=== PATIENT | male | born 1970 | race Hispanic/Latino ===

== ENCOUNTER 2024-11-10 07:18 | Emergency (ER) | payer BC ==
[~2024-11-10] VITALS: Ht 167.6 cm; Wt 87.1 kg
[2024-11-10] MEDS: ketOROlac 30MG VIAL (30MG/ML) IVP ONE (08:03)
[2024-11-10 08:14] LABS: CREATININE 0.9 mg/dL (0.5-1.3)
--- NOTE | 2024-11-10 08:31 | HMCIMG ---
Exam Type: US SCROTUM & CONTENTS Clinical Information: R/o Torsion Comparison: None Findings: Right testis is normal in size and echogenicity and vascularity. The left testis and the left epididymus are hypervascular consistent with acute epididymitis and orchitis. Complex hydrocele seen left side. No fluid collections right side. IMPRESSION: Acute left epididymoorchitis with complex hydrocele probably reactive.
[2024-11-10 08:33] LABS: BASOPHILS # (AUTO) 0.06 K/uL (0.00-0.20); BASOPHILS % (AUTO) 0.6 % (0.0-5.0); EOSINOPHILS # (AUTO) 0.12 K/uL (0.00-0.70); EOSINOPHILS % (AUTO) 1.1 % (0.0-8.0); HEMATOCRIT 42.1 % (42-54); IMMATURE GRANULOCYTE ABSOLUTE 0.11 K/uL (0-1); LYMPHOCYTES # (AUTO) 2.2 K/uL (1.0-4.8); LYMPHOCYTES % (AUTO) 20.6 % (21.0-51.0); MEAN CORPUSCULAR HEMOGLOBIN 32.7 pg (27.0-33.0); MEAN CORPUSCULAR HGB CONC 34.9 g/dL (32.0-36.0); MEAN CORPUSCULAR VOLUME 93.8 fL (79-99); MONOCYTES % (AUTO) 9.1 % (3.0-13.0); NEUTROPHILS # (AUTO) 7.3 K/uL (1.8-7.7); NEUTROPHILS % (AUTO) 67.6 % (40.0-77.0); PLATELET COUNT (AUTO) 298 K/uL (130-400); RED BLOOD CELL COUNT(AUTO) 4.49 MIL/uL (4.50-6.20); WHITE BLOOD COUNT (AUTO) 10.7 K/uL (4.8-10.8)
[2024-11-10 09:25] LABS: APPEARANCE,URINE CLEAR (CLEAR); BACTERIA,URINE RARE /HPF (None Seen); BILIRUBIN,URINE NEGATIVE (NEGATIVE); COLOR,URINE YELLOW (YELLOW); GLUCOSE, URINE (UA) NEGATIVE (NEGATIVE); KETONES,URINE NEGATIVE (NEGATIVE); LEUKOCYTE ESTERASE ,URINE NEGATIVE Leu/uL (NEGATIVE); MUCUS,URINE RARE LPF (None Seen); NITRATE,URINE NEGATIVE (NEGATIVE); PROTEIN,URINE 20 mg/dL (NEGATIVE); RBC,URINE 0-1 /HPF (0-1); SQUAMOUS EPITHELIAL CELL,UR RARE /HPF (0-2); UROBILINOGEN,URINE 0.2 mg/dL (0.2-1.0)
[2024-11-10] MEDS: cefTRIAXone 1G VIAL IM ONE (09:29)
[2024-11-10] MEDS: metRONIDazole 500 MG TABLET PO SCH (09:30)
[2024-11-10] MEDS: AZITHROMYCIN 250 MG TABLET PO ONE (09:30)
[2024-11-10] MEDS: PoTASSium chloRIDE 20MEQ ER 20 MEQ ERTAB PO ONE (09:31)
[2024-11-10] MEDS ORDERED: LIDOCAINE HCL 1% 20 ML VIAL ONE (09:34)
[2024-11-10 09:54] LABS: BAND NEUTROPHILS % (MANUAL) 3 % (0-2); BASOPHILS % (MANUAL) 1 % (0-2); LYMPHOCYTES % (MANUAL) 29 % (22-44); MAN.DIFF COMMENT-IMPRESSION MANUAL DIFFERENTIAL; MONOCYTES % (MANUAL) 9 % (2-9); PLATELET MORPHOLOGY COMMENT ADEQUATE; SEGMENTED NEUTROPHILS % 58 % (40-70); TOTAL CELLS COUNTED 100; WBC MORPHOLOGY CONSISTENT W/DIFF
[2024-11-10] MEDS ORDERED: CEPH500B PO (09:56)
--- NOTE | 2024-11-10 09:56 | ERN ---
General Chief Complaint: Testicular Injury/Pain Stated Complaint: LEFT TESTICLUAR PAIN Time Seen by MD: 07:20 History of Present Illness Initial Comments 54-year-old male came in for scrotal swelling with penile discharge which has been going on for the past few days. Patient has been having fever and denies chills. Patient denies nausea and vomiting. Patient otherwise has no concerns. Allergies: Coded Allergies: No Known Drug Allergies (Unverified Allergy, Unknown, 11/10/24) Past Medical History Past Medical History: Hypertension Past Surgical History: Other Surgical History Other: HERNIA REPAIR, RIGHT SHOULDER SX ROS Dictation CONSTITUTIONAL: Negative except for HPI HEAD/FACE: Negative except for HPI EENT: Negative except for HPI RESPIRATORY: Negative except for HPI GASTROINTESTINAL/ABDOMINAL: Negative except for HPI GENITOURINARY: Negative except for HPI MUSCULOSKELETAL: Negative except for HPI INTEGUMENTARY: Negative except for HPI NEUROLOGICAL/PSYCH: Negative except for HPI HEMATOLOGIC/LYMPHATIC: Negative except for HPI All Systems Negative, Except as noted above. 13 point review of systems assessed and all negative except for above. Physical Exam Physical Exam Dictation Vital Signs reviewed General Appearance: Alert, oriented x 3, no acute distress, well developed, nourished. Head and Face: non-traumatic. Eyes: PERRL, pink conjunctivas, eyelid no trauma, anterior chamber with arcus senilis. Ears: Pinnas intact and no signs of trauma or erythema ear canals clear and no discharge TM no erythema Nose: No discharge, no bleeding. Oropharynx: Mouth normal, tongue pink, pharynx clear,no erythema, tonsils no exudates, no abscesses noted, mucous membrane moist Neck: Supple, non-tender, no thyromegaly, no masses, no JVD, no bruits Breast:Deferred Chest:No tenderness, no crepitus, no paradoxical movement, no retractions Lungs:Clear, well-ventilated, symmetric, no rales, no wheezing, no rhonchi, no stridor, good breath sounds bilaterally Heart: Regular rate, regular rhythm, no murmur, no gallops Vascular: no peripheral edema, Abdomen: Soft, positive bowel sounds, nondistended, no guarding, nontender, no rebound, no masses no hepatomegaly, no splenomegaly, no Acharya's sign, no hernias. Rectal: Deferred Genital: Deferred Neurological: Normal speech, motor function intact, sensory function intact Musculoskeletal: Neck nontender, full range of motion, back nontender, full range of motion, Extremities: nontender, full range of motion Skin: Color pink, dry, no turgor, no rash, no lacerations, no abrasions, no contusions. Lymphatic: Deferred Results Laboratory and Microbiology Lab and Micro Result Laboratory Tests Test 11/10/24 07:55 11/10/24 08:40 White Blood Count 10.7 K/uL (4.8-10.8) Red Blood Count 4.49 MIL/uL (4.50-6.20) L Hemoglobin 14.7 g/dL (14.0-18.0) Hematocrit 42.1 % (42-54) Mean Corpuscular Volume 93.8 fL (79-99) Mean Corpuscular Hemoglobin 32.7 pg (27.0-33.0) Mean Corpuscular Hemoglobin Concent 34.9 g/dL (32.0-36.0) Red Cell Distribution Width 13.0 % (11.0-15.5) Platelet Count 298 K/uL (130-400) Mean Platelet Volume 10.8 fL (7.5-10.5) H Immature Granulocyte % (Auto) 1.0 % (0-1) Neutrophils (%) (Auto) 67.6 % (40.0-77.0) Lymphocytes (%) (Auto) 20.6 % (21.0-51.0) L Monocytes (%) (Auto) 9.1 % (3.0-13.0) Eosinophils (%) (Auto) 1.1 % (0.0-8.0) Basophils (%) (Auto) 0.6 % (0.0-5.0) Neutrophils # (Auto) 7.3 K/uL (1.8-7.7) Lymphocytes # (Auto) 2.2 K/uL (1.0-4.8) Monocytes # (Auto) 1.0 K/uL (0.1-1.0) Eosinophils # (Auto) 0.12 K/uL (0.00-0.70) Basophils # (Auto) 0.06 K/uL (0.00-0.20) Absolute Immature Granulocyte (auto 0.11 K/uL (0-1) Nucleated Red Blood Cells 0.0 % (0.0-0.19) Sodium Level 136 mmol/L (136-145) Potassium Level 3.0 mmol/L (3.5-5.1) *L Chloride Level 99 mmol/L (101-111) L Carbon Dioxide Level 30 mmol/L (21-32) Blood Urea Nitrogen 12 mg/dL (7-18) Creatinine 0.9 mg/dL (0.5-1.3) Glomerular Filtration Rate Calc 101 mL/min (>90) Random Glucose 109 mg/dL (70-105) H Total Calcium 8.5 mg/dL (8.5-10.1) Urine Color YELLOW (YELLOW) Urine Appearance CLEAR (CLEAR) Urine pH 6.0 (5.0-8.0) Urine Specific [place] 1.018 (1.001-1.031) Urine Protein 20 mg/dL (NEGATIVE) H Urine Glucose (UA) NEGATIVE mg/dL (NEGATIVE) Urine Ketones NEGATIVE mg/dL (NEGATIVE) Urine Occult Blood +- (TRACE) (NEGATIVE) H Urine Nitrate NEGATIVE (NEGATIVE) Urine Bilirubin NEGATIVE mg/dL (NEGATIVE) Urine Urobilinogen 0.2 mg/dL (0.2-1.0) Urine Leukocyte Esterase NEGATIVE Leigh/uL Urine RBC 0-1 /HPF (0-1) Urine WBC 2-5 /HPF (0-1) H Urine Squamous Epithelial Cells RARE /HPF (0-2) Urine Bacteria RARE /HPF (None Seen) MDM MDM: Differential diagnosis: There are no social concerns with this patient. Prescription drug management Prescriptions will include: Medical management and examination interpretation discussions were had by me with other qualified healthcare professionals as indicated for the patient's care. ED Course Orders Procedure Category Date Status Time Cbc With Differential LAB 11/10/24 In Process 07:26 Basic Metabolic Panel LAB 11/10/24 Complete 07:26 Urinalysis LAB 11/10/24 Complete W/Microscopic 07:26 Us Scrotum & Contents US 11/10/24 Resulted 07:26 Ketorolac PHA 11/10/24 Complete Tromethamine 30mg/Ml 07:30 Manual Differential LAB 11/10/24 In Process 07:55 Ceftriaxone 1g Vial PHA 11/10/24 Complete (Rocephine 1g Inj) 09:00 Azithromycin PHA 11/10/24 Complete (Zithromax) 09:00 Metronidazole (Flagyl) PHA 11/10/24 In Process 09:00 Potassium Chloride PHA 11/10/24 Complete 20meq Er (K-Dur/Klor- 09:00 Lidocaine Hcl 1% 20ml PHA 11/10/24 Complete Vial (Lidocaine Hc 09:34 Current Medications Medications (Trade) Dose Ordered Sig/Amna Route PRN Reason Start Time Stop Time Status Last Admin Dose Admin Azithromycin (Zithromax) 1,000 mg ONCE ONCE PO 11/10/24 09:00 11/10/24 09:01 DC 11/10/24 09:30 Ceftriaxone Sodium (ROCEphine 1G INJ) 1 gm ONCE ONCE IM 11/10/24 09:00 11/10/24 09:01 DC 11/10/24 09:29 Ketorolac Tromethamine (toRADol) 30 mg ONCE ONCE IVP 11/10/24 07:30 11/10/24 07:31 DC 11/10/24 08:03 Lidocaine HCl (Lidocaine HCl 1% 20ml Vial) 20 ml STK-MED ONCE .ROUTE 11/10/24 09:34 11/10/24 09:34 DC Metronidazole (flaGYL) 2,000 mg ONCE PO 11/10/24 09:00 11/20/24 08:59 11/10/24 09:30 Potassium Chloride (K-Dur/Klor-Con 20meq) 60 meq ONCE ONCE PO 11/10/24 09:00 11/10/24 09:01 DC 11/10/24 09:31 Vital Signs Date Time Temp Pulse Resp B/P (MAP) Pulse Ox O2 Delivery O2 Flow Rate FiO2 11/10/24 07:20 97.5 94 18 160/91 97 Room Air DX & DISP Disposition: Discharge Departure Impression: Primary Impression: Epididymitis Condition: Stable Scripts Cephalexin Monohydrate (Keflex) 500 Mg Cap 500 MG PO BID for 7 Days, #14 CAP Prov: BJORN THOMAS MD 11/10/24 Referrals: DIONI PENG (PCP) BJORN THOMAS MD Nov 10, 2024 09:56
[2024-11-10 10:54] VITALS: BP 130/69; PULSE 74; RESP 18; TEMP 97.8; O2SAT 99
== END 2024-11-10 10:59 | disposition home or self-care (01) ==
LOC: EDH 07:18
DX: N45.3 Epididymo-orchitis (principal); I10 Essential (primary) hypertension; Z98.890 Other specified postprocedural states
CPT/HCPCS: 99284; 96374; 80048; 85025; 81001; 36415; 76870; 96372; J1885; J0696